=== PATIENT | female | born 2005 | race Caucasian/White ===

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

== ENCOUNTER 2024-01-08 19:09 | Emergency (ER) | payer SELFPAY ==
[2024-01-08 19:27] LABS: APPEARANCE,URINE CLEAR; BILIRUBIN,URINE NEGATIVE (NEGATIVE); COLOR,URINE YELLOW; GLUCOSE,URINE NEGATIVE (NEGATIVE); KETONES,URINE TRACE mg/dL (NEGATIVE); LEUKOCYTE ESTERASE,URINE NEGATIVE (NEGATIVE); NITRITE,URINE NEGATIVE (NEGATIVE); OCCULT BLOOD,URINE NEGATIVE (NEGATIVE); PH,URINE 6.5 (5.0-8.0); PROTEIN,URINE NEGATIVE (NEGATIVE); UROBILINOGEN,URINE 0.2 EU/dL (<2.0)
[2024-01-08 20:11] VITALS: BP 115/71; PULSE 100
== END 2024-01-08 20:11 | disposition home or self-care (01) ==
LOC: MW.ED 19:09
DX: O99.891 Other specified diseases and conditions complicating pregnancy (principal); R30.0 Dysuria; R35.0 Frequency of micturition; Z3A.18 18 weeks gestation of pregnancy; Z75.8 Other problems related to medical facilities and other health care
CPT/HCPCS: 81003; 99283

== ENCOUNTER 2024-06-15 00:15 | Emergency (ER) | payer BC ==
[2024-06-15 00:51] VITALS: BP 128/83; PULSE 111
[2024-06-15] MEDS: Acetaminophen 325 MG Tab PO ONE (01:20)
== END 2024-06-15 02:00 | disposition left against medical advice (07) ==
LOC: MW.ED 00:15
DX: M25.522 Pain in left elbow (principal); Z75.8 Other problems related to medical facilities and other health care; Z79.899 Other long term (current) drug therapy; W00.0XXA Fall on same level due to ice and snow, initial encounter
CPT/HCPCS: 73080; 73090; 73100; 99283; A9270

== ENCOUNTER 2024-07-22 19:09 | Emergency (ER) | payer BC ==
[2024-07-22] MEDS: Ibuprofen 800 MG Tab PO ONE (20:53)
[2024-07-22] MEDS: Acetaminophen 500 MG Tab PO ONE (20:53)
[2024-07-22] MEDS: Nystatin Susp 100,000 Unit/ML 5 ML UD Cup PO ONE (21:10)
[2024-07-22] MEDS: predniSONE 20 MG Tab PO STA (21:50)
[2024-07-22 21:55] VITALS: BP 124/84; PULSE 99
== END 2024-07-22 21:55 | disposition home or self-care (01) ==
LOC: MW.ED 19:09
DX: R05.9 Cough, unspecified (principal); Z75.8 Other problems related to medical facilities and other health care; Z79.899 Other long term (current) drug therapy
CPT/HCPCS: 71045; 87428; 87651; 99283; A9270